=== PATIENT | male | born 1955 | race Caucasian/White ===

== ENCOUNTER → 2017-02-27 08:54 | Day surgery (SDC) | payer BC ==
[~2017-02-27 08:54] MED LIST: Clindamycin 900 MG IVPREMIX(* 900 MG/50 ML SDV IV ONE; Heparin 2 UNITS/ML IVPREMIX* 2,000 ML IV ONE; Heparin(*) 1000 UNIT/ML 10 ML VIAL CATH LAB IV ONE; Iohexol 350 (CONTRAST) 200 ML MDV IV ONE; LORazepam TAB(*) 1 MG ONE; LORazepam TAB(*) 1 MG PO ONE; LORazepam TAB(*) 1 MG PO PRN; Lidocaine 1% INJ* 10 MG/ML 30 ML SDV ONE; Midazolam* 1 MG/ML 10 ML VIAL (10 MG) ONE; NS 0.9% 1000 ML* 1,000 ML IV SCH; fentaNYL* 50 MCG/ML 2 ML VIAL (100 MCG VIAL) ONE
[2017-02-27 11:19] LABS: ABS Basophils 0.1 10^3/ul (0-0.2); ABS Eosinophils 0.3 10^3/ul (0-0.6); ABS Lymphocytes 2.2 10^3/ul (1.0-4.8); ABS Monocytes 0.6 10^3/ul (0-0.8); ABS Neutrophils 3.9 10^3/ul (1.5-7.7); ABS Nucleated RBC 0 10^3/ul; Eosinophil % 3.9 % (0-6); Hematocrit 43 % (42-52); Hemoglobin 14.8 g/dl (14.0-18.0); Lymphocyte % 31.3 % (25-47); Mean Corpuscular HGB Conc 35 g/dl (31-36); Mean Corpuscular Hemoglobin 32 pg (27-31); Mean Corpuscular Volume 93 fL (80-94); Mean Platelet Volume 10 um3 (7.4-10.4); Nucleated Red Blood Cells % 0.1; Platelet Count 201 10^3/ul (150-450); Red Blood Count 4.62 10^6/ul (4.0-5.4); Red Cell Distribution Width 13 % (10.5-15)
[2017-02-27 11:36] LABS: INR 0.98 (0.77-1.02)
--- NOTE | 2017-02-27 14:37 | PN ---
Progress Note - Progress Note Date of Service: 02/27/17 SOAP: Subjective: Resting comfortably. Denies pain either in the pelvis, groin or right leg. No nausea. 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 Percutaneous Minx closure device deployed successfully. Plan: 1. Standard post arteriography care status post percutaneous closure device with 2 hours bedrest. 2. Plavix 75 mg PO daily x 6 months. 3. Anticipate d/c to home today. 4. Routine Interventional Radiology clinical follow up and PHILLIP.
--- NOTE | 2017-02-27 22:01 | RAD ---
CPT II Codes: 6045F Procedure(s) performed: 1. Diagnostic right lower extremity arteriogram from ipsilateral right common femoral arterial access point. 2. Balloon angioplasty of the right superficial femoral artery. 3. Percutaneous Minx closure device to the right common femoral artery. Date of service: February 27, 2017 Indication for procedure: Right leg claudication in a patient with known peripheral arterial disease. Comparison: PHILLIP dated December 29, 2016 and CTA with runoff dated September 22, 2016 Contrast: 60 mL Omnipaque 300 Fluoroscopy Time: 9.6 minutes Vessels Accessed: Percutaneous access was obtained with ultrasound guidance in the right common femoral artery in the antegrade direction towards the right foot. Catheter arteriography, with the catheter tip located within the lumen of the following arteries, was performed at the right common femoral artery, right superficial femoral artery and right popliteal artery. Anesthesia: Conscious sedation with IV Fentanyl and Versed as well as local 1% lidocaine injected locally at the arteriotomy site. Conscious sedation time: Timeout: 1214 hours Case end: 1325 hours Total conscious sedation time: 1 hour and 11 minutes Additional medications: * IV heparin 5000 Units. * The patient received 1 mg of p.o. Ativan prior to the onset of the procedure. PROCEDURE NOTE AND INTRAPROCEDURAL IMAGING FINDINGS: Immediately prior to the procedure the patient signed consent after thoroughly discussing all risks, benefits and alternative therapies. The patient was positioned on the fluoroscopy table in the supine position and the bilateral groins and right ankle were shaved, prepped and the patient was draped in standard sterile fashion. Using fluoroscopic imaging the location of the right common femoral head was marked externally with a skin marker on the patient's groin. Utilizing sonographic guidance and palpation, the right common femoral artery was cannulated overlying the femoral head with a 21-gauge needle. An ultrasound image was saved. A microwire was slowly and smoothly advanced into the common femoral artery and into the right superficial femoral artery under fluoroscopic imaging. No buckling of the wire was visualized to indicate dissection. With the wire securing percutaneous arterial access, the needle was removed and a 5-Sol[place] Islander sheath was advanced over the wire until the tip was in the right common femoral artery. Arteriography was performed demonstrating appropriate placement of the sheath in the right common femoral artery. There is coarse calcification at the proximal most portion of the right superficial femoral artery. Contrast refluxed into the right external iliac artery distally and also filled the femoral profundus. A focus of high-grade stenosis in the proximal right superficial femoral artery was noted with evidence of collateralization from the more proximal superficial femoral artery and the femoral profundus. Arteriography was performed at the mid-level the more distal superficial femoral artery that demonstrated multiple foci of long segment stenosis at the mid-level superficial femoral artery as it courses through Dorian's canal. Further evidence of hypertrophied collateralization provided by the branches of the femoral profundus and more proximal branches off the SFA were readily apparent filling more distal right SFA and popliteal artery. A 0.035 inch hydrophilic wire was advanced under fluoroscopic control into the SFA. Over the wire the 5-[place] Islander sheath was exchanged for a 7-[place] Islander SideArm access sheath. Over the wire a 4-[place] Islander curved tip catheter was advanced and the combination of the catheter and wire were utilized to pass the stenoses in the right superficial femoral artery advancing the catheter to the distal popliteal artery. The wire was removed and arteriography was performed from this level demonstrating adequate patency of the distal popliteal artery, tibioperoneal trunk and proximal infrapopliteal arteries. The final preintervention diagnostic arteriogram was to image the distal infrapopliteal arteries and proximal pedal arteries. This demonstrated adequate in-line flow provided by the anterior tibial artery and posterior tibial arteries into the dorsalis pedis and plantar arteries, respectively. Adequate arterial flow was recorded as far as the right mid foot. The peroneal artery exhibits minimal filling beyond the distal third of the right lower leg. A 260 cm length 0.035 inch e[employer] Moneyson wire was advanced to the proximal right peroneal artery securing access across the diseased right superficial femoral artery. Over the wire balloon angioplasty was performed at multiple levels of the right superficial femoral artery utilizing a 5 mm x 100 mm Passeo-35 balloon. The balloon was ultimately inflated just below burst pressure yielding an approximate diameter of 5.5 mm. The balloon was inflated slowly under fluoroscopic control and was allowed to remain inflated for minimum of 2 to 3 minutes during each inflation. Arteriography from the right common femoral sheath through the popliteal artery showed improved flow with minor stenoses at the level of Dorian's canal. Over the wire a 5 mm x 120 mm paclitaxel coated InPact balloon was advanced to the long segment stenoses at the mid-level right superficial femoral artery and balloon angioplasty was performed. The artery was inflated just below burst pressure yielding an approximate diameter of 5.5 mm. The balloon remained inflated for at least 3 minutes to ensure adequate drug delivery to the endothelium. During inflation of the drug coated balloon in the right superficial femoral artery, contrast arteriography was performed through the side arm of the access sheath with the image intensifier in the left anterior oblique 20 degree position. This further demonstrated an appropriate puncture of the common femoral artery above the bifurcation and below the inferior epigastric artery. The sheath was drawn back until the tip was just barely in the lumen of the right common femoral artery to allow final balloon angioplasty across the proximal most portion of the right superficial femoral artery including the ostium and the distal most portion of the right common femoral artery. A final arteriogram performed with the tip of the sheath in the right common femoral artery demonstrated improved brisk flow throughout the length of the distal right common femoral artery into the superficial femoral artery and as far as the tibioperoneal trunk. No signs of extravasation or dissection are seen. After an appropriate resterilization of the arteriotomy and exchange for new sterile gloves, a Minx closure device was deployed at the common femoral arteriotomy and pressure held for approximately 15 minutes. There were no signs of bleeding at the percutaneous arterial access site and the site was dressed with sterile gauze and Tegaderm. The patient tolerated the procedure well and was transferred to angiography holding bay for standard post procedural observation. SUMMARY OF PROCEDURE, IMAGING FINDINGS AND INTERVENTIONS PERFORMED: 1. Diagnostic studies performed: * Arterial access was obtained at the right common femoral artery in the antegrade direction (i.e. towards the foot) with ultrasound guidance. A sonographic image was recorded. * Diagnostic catheter angiography (necessary to perform the appropriate interventions) was performed with the catheter tip in the right common femoral artery, right superficial femoral artery and right popliteal. * Catheter arteriography was performed of the right lower extremity from the distal right external iliac artery, through the femoral arteries, infrapopliteal arteries and as far as the mid foot pedal arteries. * Arteriography was performed through the side arm of the access sheath to image the distal right external iliac artery, right common femoral artery and proximal superficial femoral artery and femoral profundus. 2. Interpretation of diagnostic studies performed: * Multiple foci of high-grade stenosis at the distal right common femoral artery and superficial femoral artery as described in detail in the report. * Arteriography performed for the purpose of deploying a percutaneous arterial closure device demonstrates adequately patent right external iliac artery, common femoral artery and proximal superficial femoral artery and femoral profundus. 3. Surgical interventions performed: * Balloon angioplasty of the distal most right common femoral artery and right superficial femoral artery utilizing a 5 mm x 100 mm Biotronik balloon followed by a 5 mm x 120 mm paclitaxel coated InPact balloon. * Closure of the right common femoral artery was achieved with a Minx closure device followed by 15 minutes of gentle manual pressure. 4. Interpretation of interventions performed: * Final arteriography demonstrated widely patent brisk flow from the right common femoral artery through to the popliteal artery following angioplasty. Plan: 1. Aspirin 81 mg p.o. daily for life. 2. Plavix 75 mg p.o. daily x 6 months. 3. Clinical and imaging follow-up according to standard Interventional Radiology protocol.
== END | disposition home or self-care (01) ==
LOC: CHICATH 08:54
PROVIDERS: ATTEND Radiology Diagnostic Radiology
DX: I70.213 Atherosclerosis of native arteries of extremities with intermittent claudication, bilateral legs (principal); I73.9 Peripheral vascular disease, unspecified; Z87.891 Personal history of nicotine dependence; I10 Essential (primary) hypertension; E78.00 Pure hypercholesterolemia, unspecified; E78.5 Hyperlipidemia, unspecified; R07.9 Chest pain, unspecified
CPT/HCPCS: 36415; 76937; 85025; 85610; 85730; 99156; 99157; A9270-GY; C1725; C1760; C1769; C1887; C1894; J1644; J2250; J3010

== ENCOUNTER 2017-04-22 12:47 | Emergency (ER) | payer BC ==
--- OUTSIDE RECORDS SUMMARY | 2017-04-22 13:02 | XMS REPORT ---
:1955 External Reference #:[id number] Author Organization [employer] Address [address] [address] Phone [phone] Care Team Providers Name Role Phone Carrillo Luna MD Primary Care Physician Unavailable Payers Type Date Identification Numbers Payment Provider Subscriber Commercial Effective: Policy Number: BS Maria Del Rosario Price 2012 [id number] PayID: [id number] [address] [address] [place] [address] Medigap Part B Effective: 2000 Policy Number: BS Of JULIAN Price [id number] Expires: 2012 PayID: [id number] [address] [address] [place] [address] Problems Date Description Provider Status Onset: 05/25/2014 Spinal stenosis of lumbar region Meng Lorenz M.D. Active Onset: 05/25/2014 Weight decreased Meng Lorenz M.D. Active Onset: 05/31/2014 Atherosclerosis of arteries of the Meng Lorenz M.D. 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 Daily Caffeine Consumes on average 3 cups of regular coffee per day Exercise Type/Frequency Exercises regularly walking at home, and gym on treadmill daily Allergies, Adverse Reactions, Alerts Date Description Reaction Status Severity Comments 03/25/2017 Izzy depression active 11/09/2006 NKDA inactive Medications Medication Date Status Form Strength Qnty SIG Indications Ordering Provider Clopidogrel 10/29/ Active Tablets 75mg 180ta 75 mg by I70.213 Christophe Renteria Bisulfate 2017 bs mouth daily Daly, to start one M.D. week before endovascular surgery with Dr. Kauffman. Aspirin Adult / Active Tablets DR 81mg 1 PO qd Unknown 0000 Lipitor / Active Tablets 40mg one tab by Unknown 0000 mouth every night at bedtime Zestoretic / Active Tablets 10-12.5mg 1 by mouth Unknown 0000 every day Diazepam / Active Tablets 5mg Take One Unknown 0000 Tablet By Mouth Three Times A Day as Needed For Anxiety Maxim Viagra / Active Tablets 100mg Take 1 Tablet Unknown 0000 By Mouth as Needed 30 To 60 Minutes Before [place] (pt takes 1/2 tablet) Hydrocodone-A / Active Tablets 5-325mg 1 tab by Unknown cetaminophen 0000 mouth every 4- 6 hours as needed pain Probiotic / Active Capsules 1 by mouth Unknown 0000 every day Percocet 12/11/ Hx Tablets 5-325mg 45tab 1-2 tabs by Z96.642 Zaira 2014 mouth q8 as Mario, 01/25/ needed pain M.D. 2016 Percocet 09/01/ Hx Tablets 5-325mg 80tab 1-2 tabs by V54.81 Zaira 2014 mouth q8 as Mario, 11/09/ needed pain M.D. 2014 Percocet 07/31/ Hx Tablets 5-325mg 90tab take 1-2 715.15 Zaira 2014 pills every Mario, 09/01/ 4-6 hours as M.D. 2014 needed pain Coumadin 07/31/ Hx Tablets 2mg 60tab Take 1-3 tabs 715.15 Kurtis 2014 as directed Maria Ines 08/31/ M.D. 2014 Docusate 07/31/ Hx Capsules 100mg 60cap 1 by mouth 715.15 Kurtis Sodium 2014 - s twice a day Maria Ines, M.D. 2014 Ibuprofen 11/09/ Hx Tablets 200mg 2 PO tid prn Jun Hernandez 2007 - Pain Ayala, M.DGloria 2014 Zestoretic /00/ Hx Tablets 12.5 90tab 1 po qd Jun E. 0000 - s Ayala, M.DGloria 2014 Lipitor / Hx Tablets 20mg 90tab One Tab po Jun E. 0000 - s qhs Ayala, M.DGloria 2014 Hydrocodone-A / Hx Tablets 5-325mg 1 by mouth Unknown cetaminophen 0000 - every 4-6 11/09/ hours prn. 2014 Ibuprofen / Hx Capsules 200mg as needed Unknown 0000 - 2014 Cilostazol / Hx Tablets 100mg Take One Unknown 0000 - Tablet By 03/24/ Mouth Every 2017 Day Chantix / Hx Tablets 1mg Take One Unknown 0000 - Tablet By 10/28/ Mouth Twice A 2016 Day Omeprazole / Hx Capsules 40mg Take One Unknown 0000 - DR Capsule By 03/24/ Mouth Every 2017 Morning Vital Signs Date Vital Result Comment 03/25/2017 Height 66 inches 5'6" Weight 185.00 lb w/ o shoes Heart Rate 90 /min BP Systolic Sitting 142 mmHg lue reg cuff BP Diastolic Sitting 82 mmHg lue reg cuff Respiratory Rate 18 /min BMI (Body Mass Index) 29.9 kg/m2 10/29/2016 Height 66 inches 5'6" Weight 182.00 lb Heart Rate 70 /min BP Systolic Sitting 145 mmHg rue reg cuff BP Diastolic Sitting 54 mmHg rue reg cuff Respiratory Rate 20 /min BMI (Body Mass Index) 29.4 kg/m2 06/25/2016 Height 66 inches 5'6" Weight 185.00 lb Heart Rate 72 /min BP Systolic 141 mmHg BP Diastolic 79 mmHg Respiratory Rate 16 /min Body Temperature 97.2 F Pain Level 1 BMI (Body Mass Index) 29.9 kg/m2 01/17/2015 Height 66 inches 5'6" Weight 162.00 lb Pain Level 2 BMI (Body Mass Index) 26.1 kg/m2 12/11/2014 Height 66 inches 5'6" Weight 151.00 lb Heart Rate 104 /min BP Systolic 182 mmHg BP Diastolic 95 mmHg BMI (Body Mass Index) 24.4 kg/m2 10/02/2014 Height 66 inches 5'6" Weight 151.00 lb Pain Level 4 BMI (Body Mass Index) 24.4 kg/m2 09/01/2014 Height 66 inches 5'6" Weight 154.00 lb Heart Rate 82 /min BP Systolic 147 mmHg BP Diastolic 78 mmHg Pain Level 3 BMI (Body Mass Index) 24.9 kg/m2 08/14/2014 Height 66 inches 5'6" Weight 154.00 lb Heart Rate 109 /min BP Systolic 150 mmHg BP Diastolic 85 mmHg Respiratory Rate 18 /min Body Temperature 98.8 F Pain Level 5 BMI (Body Mass Index) 24.9 kg/m2 07/31/2014 Height 66 inches 5'6" Weight 154.00 lb Heart Rate 123 /min BP Systolic 169 mmHg BP Diastolic 95 mmHg BMI (Body Mass Index) 24.9 kg/m2 06/29/2014 Height 66 inches 5'6" Weight 154.00 lb Heart Rate 95 /min BP Systolic 209 mmHg BP Diastolic 115 mmHg Pain Level 7 BMI (Body Mass Index) 24.9 kg/m2 05/31/2014 Height 66 inches 5'6" Weight 154.00 lb Heart Rate 82 /min BP Systolic Sitting 140 mmHg BP Diastolic Sitting 80 mmHg Pain Level 8 back/l hip BMI (Body Mass Index) 24.9 kg/m2 05/25/2014 Height 66 inches 5'6" Weight 154.00 lb Heart Rate 88 /min BP Systolic Sitting 210 mmHg BP Diastolic Sitting 96 mmHg Pain Level 10 back BMI (Body Mass Index) 24.9 kg/m2 09/13/2008 Height 67 inches 5'7" Weight 177.00 lb Heart Rate 80 /min BP Systolic Sitting 128 mmHg BP Diastolic Sitting 80 mmHg BMI (Body Mass Index) 27.7 kg/m2 11/15/2007 Height 67 inches 5'7" Weight 177.00 lb Heart Rate 88 /min BP Systolic Sitting 146 mmHg BP Diastolic Sitting 86 mmHg BMI (Body Mass Index) 27.7 kg/m2 05/11/2007 Height 67 inches 5'7" Weight 178.00 lb Heart Rate 100 /min BP Systolic Sitting 136 mmHg BP Diastolic Sitting 88 mmHg BMI (Body Mass Index) 27.9 kg/m2 11/09/2006 Height 67 inches 5'7" Weight 174.00 lb Heart Rate 100 /min BP Systolic Sitting 144 mmHg BP Diastolic Sitting 90 mmHg BMI (Body Mass Index) 27.2 kg/m2 Results Test Date Test Result H/L Range Note Inr/Protime 02/27/2017 Inr 0.98 0.77-1.02 1 Laboratory test finding 02/27/2017 Partial Thrombo 30.6 seconds 26.0- 36.3 1, 2 Time PTT CBC Auto Diff 02/27/2017 White Blood Count 7.0 10^3/uL 3.5-10.8 1 Red Blood Count 4.62 10^6/uL 4.0-5.4 1 Hemoglobin 14.8 g/dL 14.0-18.0 1 Hematocrit 43 % 42-52 1 Mean Corpuscular Volume 93 fL 80-94 1 Mean Corpuscular Hemoglobin 32 pg High 27-31 1 Mean Corpuscular HGB Conc 35 g/dL 31-36 1 Red Cell Distribution Width 13 % 10.5-15 1 Platelet Count 201 10^3/uL 150-450 1 Mean Platelet Volume 10 um3 7.4-10.4 1 Abs Neutrophils 3.9 10^3/uL 1.5-7.7 1 Abs Lymphocytes 2.2 10^3/uL 1.0-4.8 1 Abs Monocytes 0.6 10^3/uL 0-0.8 1 Abs Eosinophils 0.3 10^3/uL 0-0.6 1 Abs Basophils 0.1 10^3/uL 0-0.2 1 Abs Nucleated RBC 0 10^3/uL 1 Granulocyte % 55.1 % 38-83 1 Lymphocyte % 31.3 % 25-47 1 Monocyte % 8.9 % 1-9 1 Eosinophil % 3.9 % 0-6 1 Basophil % 0.8 % 0-2 1 Nucleated Red Blood Cells % 0.1 1 Basic Metabolic Panel 11/21/2016 Sodium 133 mmol/L 133-145 Potassium 4.1 mmol/L 3.5-5.0 Chloride 100 mmol/L Low 101-111 Co2 Carbon Dioxide 26 mmol/L 22-32 Anion Gap 7 mmol/L 2-11 Glucose 109 mg/dL High 70-100 Blood Urea Nitrogen 13 mg/dL 6-24 Creatinine 1.06 mg/dL 0.67-1.17 BUN/Creatinine Ratio 12.3 8-20 Calcium 9.5 mg/dL 8.6-10.3 Egfr Non- 71.3 >60 Egfr 91.7 >60 3 Inr/Protime 11/21/2016 Inr 0.91 0.89-1.11 Laboratory test finding 11/21/2016 Partial Thrombo Time 30.6 seconds 26.0 -36.3 PTT CBC Auto Diff 11/21/2016 White Blood Count 6.0 10^3/uL 3.5-10.8 Red Blood Count 4.55 10^6/uL 4.0-5.4 Hemoglobin 14.5 g/dL 14.0-18.0 Hematocrit 42 % 42-52 Mean Corpuscular Volume 91 fL 80-94 Mean Corpuscular Hemoglobin 32 pg High 27-31 Mean Corpuscular HGB Conc 35 g/dL 31-36 Red Cell Distribution Width 13 % 10.5-15 Platelet Count 209 10^3/uL 150-450 Mean Platelet Volume 10 um3 7.4-10.4 Abs Neutrophils 2.8 10^3/uL 1.5-7.7 Abs Lymphocytes 2.3 10^3/uL 1.0-4.8 Abs Monocytes 0.6 10^3/uL 0-0.8 Abs Eosinophils 0.3 10^3/uL 0-0.6 Abs Basophils 0.1 10^3/uL 0-0.2 Abs Nucleated RBC 0.01 10^3/uL Granulocyte % 45.9 % 38-83 Lymphocyte % 38.6 % 25-47 Monocyte % 10.2 % High 1-9 Eosinophil % 4.4 % 0-6 Basophil % 0.9 % 0-2 Nucleated Red Blood Cells % 0.1 CBC No Diff 07/31/2014 White Blood Count 7.7 10^3/uL 4.8-10.8 4 Red Blood Count 4.23 10^6/uL 4.0-5.4 4 Hemoglobin 14.1 g/dL 14.0-18.0 4 Hematocrit 42 % 42-52 4 Mean Corpuscular Volume 98 fL High 80-94 4 Mean Corpuscular Hemoglobin 33 pg High 27-31 4 Mean Corpuscular HGB Conc 34 g/dL 31-36 4 Red Cell Distribution Width 13 % 10.5-15 4 Platelet Count 297 10^3/uL 150-450 4 Mean Platelet Volume 9 um3 7.4-10.4 4 Basic Metabolic Panel 07/31/2014 Sodium 134 mmol/L 133-145 4 Potassium 4.0 mmol/L 3.5-5.0 4 Chloride 99 mmol/L Low 101-111 4 Co2 Carbon Dioxide 28 mmol/L 22-32 4 Anion Gap 7 mmol/L 2-11 4 Glucose 92 mg/dL 70-100 4 Blood Urea Nitrogen 14 mg/dL 6-24 4 Creatinine 0.91 mg/dL 0.67-1.17 4 BUN/Creatinine Ratio 15.4 8-20 4 Calcium 10.3 mg/dL 8.6-10.3 4 Egfr Non- 85.6 >60 4 Egfr 110.1 >60 4, 5 Urinalysis Profile 07/31/2014 Urine Color Yellow 4 Urine Appearance Clear 4 Urine Specific Jackson 1.016 1.010-1.030 4 Urine pH 7.0 5-9 4 Urine Urobilinogen Negative Negative 4 Urine Ketones Negative Negative 4 Urine Protein Negative Negative 4 Urine Leukocytes Negative Negative 4 Urine Blood Negative Negative 4 Urine Nitrite Negative Negative 4 Urine Bilirubin Negative Negative 4 Urine Glucose Negative Negative 4 Type & Screen 07/31/2014 Patient Blood Type A Positive 4 Antibody Screen NEGATIVE 4 Laboratory test finding 05/31/2014 Blood Urea Nitrogen 12 mg/dL 6-24 Creatinine 05/31/2014 Creatinine 0.94 mg/dL 0.67-1.17 Egfr Non- 82.4 >60 Egfr 106.0 >60 6 Laboratory test finding 08/22/2008 TSH 1.09 MIU/ML 0.34-5.60 PSA Screening 1.19 NG/ML 0-4 7 Hemoglobin A1c 5.7 % <6.0 8 Lipid Profile (Trig/Chol/HDL) 08/22/2008 Triglyceride 76 mg/dL 40-200 Cholesterol 201 mg/dL High Less Than 200 9 High Density Lipoprotein 42 mg/dL 40-60 10 Cholesterol/HDL Ratio 4.79 AVERAGE 1-4.97 Low Density Lipoprotein 144 mg/dL High Less Than 100 11 Comp Metabolic Panel 08/22/2008 Sodium 138 mmol/L 135-145 Potassium 5.8 mmol/L High 3.5-5.0 Chloride 101 mmol/L 101-111 Co2 (Carbon Dioxide) 29.0 mmol/L 22-32 Anion Gap 8.0 mmol/L 2-11 12 Glucose 109 mg/dL High 70-100 13 BUN 13 mg/dL 6-24 Creatinine 1.10 mg/dL 0.50-1.40 One Over Creatinine 0.90 BUN/Creatinine Ratio 11.8 8-20 Calcium 10.4 mg/dL High 8.1-9.9 14 Total Protein 7.2 GM/DL 6.2-8.1 Albumin 4.8 GM/DL 3.6-5.4 Globulin 2.4 GM/DL 2-4 Albumin/Globulin Ratio 2.0 1-3 Bilirubin Total 0.8 mg/dL 0.4-1.5 15 Alkaline Phosphatase 78 U/L 39-117 Alt (SGPT) 31 U/L 17-63 Ast (Sgot) 32 U/L 12-42 eGFR Non- 74.7 > 60 eGFR 90.4 > 60 16 CBC With Electronic Diff 08/22/2008 White Blood Count 10.9 CUMM High 4.8- 10.8 Red Cell Count 5.13 CUMM 4.6-6.2 Hemoglobin 16.8 g/dL 14.0-18.0 Hematocrit 49 % 42-52 Mean Corpuscular Volume 95 um3 High 80-94 Mean Corpuscular Hemoglob 33 pg High 27-31 Mean Corpuscular HGB Cone 35 g/dL 32-36 Redcell Distribution WDTH 12 % 10.5-15 Platelet Count 207 CUMM 150-450 Mean Platelet Volume 10.1 um3 7.4-10.4 Gran % 70.9 % 38-83 Lymph % 21.2 % Low 25-47 Mononuclear % 6.4 % 1-9 Eosinophil % 1.4 % 0-6 Basophil % 0.1 % 0-2 Abs Lymphs 2.3 1.0-4.8 Abs Mononuclear 0.7 0-0.8 Absolute Neutrophil Count 7.7 1.5-7.7 Abs Eosinophils 0.2 0-0.6 Abs Basophils 0 0-0.2 Laboratory test finding 11/18/2006 PSA Screening 1.47 NG/ML 0-4 17 TSH 1.07 MIU/ML 0.34-5.60 Hemoglobin A1c 5.4 % <6.0 18 Lipid Profile 11/18/2006 Cholesterol/HDL Ratio 4.76 AVERAGE 1-4.97 (Trig/Chol/HDL) Cholesterol 195 mg/dL Less Than 200 19 Triglyceride 70 mg/dL 40-200 High Density Lipoprotein 41 mg/dL 40-60 Low Density Lipoprotein 140 mg/dL High Less Than 100 20 Comp Metabolic Panel 11/18/2006 One Over Creatinine 0.83 Anion Gap 6.0 mmol/L 2-11 21 Albumin/Globulin Ratio 2.1 1-3 Albumin 4.6 GM/DL 3.6-5.4 Alkaline Phosphatase 69 U/L 39-117 Alt (SGPT) 25 U/L 17-63 Ast (Sgot) 34 U/L 12-42 BUN 6 mg/dL 6-24 Calcium 9.9 mg/dL 8.7-10.2 Chloride 101 mmol/L 101-111 Co2 (Carbon Dioxide) 33.0 mmol/L High 22-32 Globulin 2.2 GM/DL 2-4 Glucose 108 mg/dL High 70-105 Potassium 5.7 mmol/L High 3.5-5.0 Sodium 140 mmol/L 135-145 Bilirubin Total 0.6 mg/dL 0.4-1.5 Total Protein 6.8 GM/DL 6.2-8.1 BUN/Creatinine Ratio 5.0 Low 8-20 Creatinine 1.2 mg/dL 0.5-1.4 CBC W/ Electronic Diff 11/18/2006 White Blood Count 10.5 CUMM 4.8-10.8 Abs Basophils 0 0-0.2 Abs Eosinophils 0.1 0-0.6 Absolute Neutrophil Count 7.9 High 1.5-7.7 Abs Lymphs 1.7 1.0-4.8 Abs Mononuclear 0.7 0-0.8 Basophil % 0.3 % 0-2 Hematocrit 48 % 42-52 22 Hemoglobin 15.9 g/dL 14.0-18.0 Eosinophil % 1.3 % 0-6 Gran % 75.2 % 38-83 Lymph % 16.4 % Low 20-45 Mean Corpuscular HGB Cone 33 g/dL 32-36 Mean Corpuscular Hemoglob 32 pg High 27-31 Mean Corpuscular Volume 96 um3 High 80-94 Mean Platelet Volume 10.1 um3 7.4-10.4 Mononuclear % 6.8 % 1-9 Platelet Count 274 CUMM 150-450 Red Cell Count 5.02 CUMM 4.6-6.2 Redcell Distribution WDTH 12 % 10.5-15 1 CALL RESULTS 4591 2 CALL RESULTS 4591 3 Because ethnic data is not always readily available, this report includes an eGFR for both -Americans and non- Americans. The National Kidney Disease Education Program (NKDEP) does not endorse the use of the MDRD equation for patients that are not between the ages of 18 and 70, are , have extremes of body size, muscle mass, or nutritional status, or are non- or non-. According to the National Kidney Foundation, irrespective of diagnosis, the stage of the disease is based on the level of kidney function: Stage Description GFR(mL/min/1.73 m(2)) 1 Kidney damage with normal or decreased GFR 90 2 Kidney damage with mild decrease in GFR 60-89 3 Moderate decrease in GFR 30-59 4 Severe decrease in GFR 15-29 5 Kidney failure <15 (or dialysis) 4 AA 08/08 5 Because ethnic data is not always readily available, this report includes an eGFR for both -Americans and non- Americans. The National Kidney Disease Education Program (NKDEP) does not endorse the use of the MDRD equation for patients that are not between the ages of 18 and 70, are , have extremes of body size, muscle mass, or nutritional status, or are non- or non-. According to the National Kidney Foundation, irrespective of diagnosis, the stage of the disease is based on the level of kidney function: Stage Description GFR(mL/min/1.73 m(2)) 1 Kidney damage with normal or decreased GFR 90 2 Kidney damage with mild decrease in GFR 60-89 3 Moderate decrease in GFR 30-59 4 Severe decrease in GFR 15-29 5 Kidney failure <15 (or dialysis) 6 Because ethnic data is not always readily available, this report includes an eGFR for both -Americans and non- Americans. The National Kidney Disease Education Program (NKDEP) does not endorse the use of the MDRD equation for patients that are not between the ages of 18 and 70, are , have extremes of body size, muscle mass, or nutritional status, or are non- or non-. According to the National Kidney Foundation, irrespective of diagnosis, the stage of the disease is based on the level of kidney function: Stage Description GFR(mL/min/1.73 m(2)) 1 Kidney damage with normal or decreased GFR 90 2 Kidney damage with mild decrease in GFR 60-89 3 Moderate decrease in GFR 30-59 4 Severe decrease in GFR 15-29 5 Kidney failure <15 (or dialysis) 7 * SERUM LEVELS OF PSA MEASURED USING THE [employer] ACCESS HYBRITECH IMMUNOASSAY SHOULD NOT BE INTERPRETED ABSOLUTE EVIDENCE OF THE PRESENCE OR ABSENCE OF DISEASE. THE PSA VALUE SHOULD BE USED IN CONJUNCTION WITH OTHER PERTINENT CLINICAL DIAGNOSTIC PROCEDURES. 8 THERAPEUTIC TARGET FOR THE TREATMENT OF DIABETES MELLITUS PATIENTS IS <7% HBA1C, AND IN SELECTIVE PATIENTS <6.0%. PLEASE REFER TO [place] [employer]ATION DIABETIC CARE GUIDELINES FOR FURTHER INFORMATION. 9 CHOLESTEROL INTERPRETATION: Desirable: Less than 200 MG/DL Borderline-High Risk: 200-239 MG/DL High-Risk: 240 MG/DL and over 10 HDL INTERPRETATION: Undesirable: High Risk: Less than 40 MG/DL Desirable: Low Risk: Greater than 60 MG/DL 11 LDL INTERPRETATION: Low Risk Optimal Level: LDL Less than 100 MG/DL Near or Above Optimal: LDL 100-129 MG/DL Borderline High Risk: LDL 130-159 MG/DL High Risk: LDL 160-189 MG/DL Very High Risk: LDL Greater than 189 MG/DL 12 Anion gap measurement may be of limited value in the presence of any alkalosis, especially in a combined acid base disorder. . 13 Note change in reference range as of 09/30/07. The change was based on recommendations from the [place] [employer]. 14 Please note change in reference range effective 07 . 15 A metabolite of Naproxen, O-desmethylnaproxen, has been shown to interfere with the Jendrassik-[place] method for measuring total bilirubin. Samples from patients who have taken Naproxen have shown spurious elevation in total bilirubin levels. 16 Because ethnic data is not always readily available, this report includes an eGFR for both -Americans and non- Americans. The National Kidney Disease Education Program (NKDEP) does not endorse the use of the MDRD equation for patients that are not between the ages of 18 and 70, are , have extremes of body size, muscle mass, or nutritional status, or are non- or non-. According to the National Kidney Foundation, irrespective of diagnosis, the stage of the disease is based on the level of kidney function: Stage Description GFR(mL/min/1.73 m(2)) 1 Kidney damage with normal or decreased GFR 90 2 Kidney damage with mild decrease in GFR 60-89 3 Moderate decrease in GFR 30-59 4 Severe decrease in GFR 15-29 5 Kidney failure <15 (or dialysis) 17 * SERUM LEVELS OF PSA MEASURED USING THE [employer] ACCESS HYBRITECH IMMUNOASSAY SHOULD NOT BE INTERPRETED ABSOLUTE EVIDENCE OF THE PRESENCE OR ABSENCE OF DISEASE. THE PSA VALUE SHOULD BE USED IN CONJUNCTION WITH OTHER PERTINENT CLINICAL DIAGNOSTIC PROCEDURES. 18 THERAPEUTIC TARGET FOR THE TREATMENT OF DIABETES MELLITUS PATIENTS IS <7% HBA1C, AND IN SELECTIVE PATIENTS <6.0%. PLEASE REFER TO [place] [employer] DIABETIC CARE GUIDELINES FOR FURTHER INFORMATION. 19 Classification: Desirable . 20 CALCULATED LDL APPROXIMATES THE VALUE OF A DIRECT LDL MEASUREMENT. Classification: Borderline High . 21 Anion gap measurement may be of limited value in the presence of any alkalosis, especially in a combined acid base disorder. . 22 Lymphopenia % Procedures Date CPT Code Description Status 02/27/2017 52729 Moderate Sedation Services; Same Phys Each Additional Completed 15 Mins 02/27/2017 42271 Moderate Sedation Services; Same Phys Intl 15 Mins; PT Completed >=5 Years 02/27/2017 97292 Ultrasound Guidance For Vascular Access Completed 02/27/2017 11626 Ogkrb-Pgyjqxkoa-Ovrpmoqtcs Completed 02/27/2017 73574 Revascularization,Endovascular,Transluminal Angioplasty Completed 11/21/2016 16420 Moderate Sedation Services; Same Phys Each Additional Completed 15 Mins 11/21/2016 58404 Moderate Sedation Services; Same Phys Intl 15 Mins; PT Completed >=5 Years 11/21/2016 31472 Ultrasound Guidance For Vascular Access Completed 11/21/2016 61764 Angio Extremity, Bilateral Completed 11/21/2016 56206 Revascularization,Endovascular W/Atherectomy, Inc Completed Angioplasty 08/08/2014 07991 THR Total Hip Replacement Completed 08/08/2014 42852 THR Total Hip Replacement Completed 05/31/2014 Bone Mineral Density Test Completed Encounters Type Date Location Provider CPT E/M Dx Office Visit 11/24/2016 [facility] Christophe Kauffman, 52073 I70.213 11:53a Of Elaina Boudreaux Office Visit 10/29/2016 [facility] Christophe Kauffman, 58541 I70.213 10:30a Of Elaina Boudreaux Office Visit 06/25/2016 [facility] Zaira Martin M.D. 77323 Z47.1 9:15a Of C.M.AGloria Z96.642 M25.552 Office Visit 01/17/2015 9:15a [facility] Of Zaira Martin M.D. 76110 Z47.1 C.M.A. Z96.642 Office Visit 12/11/2014 11:15a [facility] Of Zaira Martin M.D. 82814 Z96.642 C.M.A. M25.552 M76.12 Z47.1 Office Visit 06/29/2014 10:00a [facility] Of Zaira Martin, 13764 715.15 C.MShabana Boudreaux Office Visit 05/31/2014 3:00p [facility] Of Meng Lorenz 69030 724.02 [facility] Janusz 440.21 Office Visit 05/25/2014 1:00p [facility] Meng Lorenz, 74138 724.02 Of Elaina Boudreaux 783.21 Office Visit 09/13/2008 11:30a [facility], 55408 401.1 [facility]D. Office Visit 11/15/2007 11:00a [facility] [address]00 [facility] 05/11/2007 11:30a [facility], 81201 [facility] Visit 11/09/2006 11:30a [facility], 72580 272.0 [facility] 401.1 724.2 Plan of Care 03/25/2017 - Christophe Kauffman M.D.I70.213 Athscl minto arteries of extrm w intrmt mendez, bi legsComments:The following was discussed with Emeka at the time of follow-up clinic visit:Overall the patient appears to exhibit significant clinical improvement status post angioplasty of the bilateral superficial femoral arteries. 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 Transcatheter pressure measurements acquired above and below the stenoses did show a gradient but the gradient did not meet the 10 mmHg threshold to warrant stent placement in the iliac arteries. Perhaps the aortoiliac narrowing is contributing to the reduced ABIs and potentially to the patient's persistent left calf pain.Alternatively the left calf pain could be musculoskeletal as the patient appears to a rigorous daily workout regimen.Either way, the patient is satisfied clinically and therefore currently there is no indication for further intervention.Follow up:According to the patient's request there will be no clinic follow-up 3 and 6 months post intervention. The patient was encouraged to contact interventional radiology if he experiences any change in symptoms or other issues.
[2017-04-22] MEDS ORDERED: LORazepam INJ* 2 MG/ML 1 ML VIAL ONE (13:09)
[2017-04-22] MEDS ORDERED: fentaNYL* 50 MCG/ML 2 ML VIAL (100 MCG VIAL) ONE (13:11)
[2017-04-22] MEDS ORDERED: Lidocaine 1% INJ* 10 MG/ML 30 ML SDV ONE (13:19)
[2017-04-22] MEDS ORDERED: NS 0.9% 1000 ML* 2,000 ML IV ONE (14:27)
[2017-04-22] MEDS ORDERED: Tetan/Diph/Pertus SYR(Tdap)* 0.5 ML SYR(BOOSTRIX) use SYR IM ONE (14:28)
--- NOTE | 2017-04-22 15:27 | RAD ---
INDICATION: Head injury. COMPARISON: There are no prior studies available for comparison. TECHNIQUE: Contiguous axial sections of the brain were obtained from the skull base to the vertex without contrast. FINDINGS: The ventricles, cisterns and sulci are enlarged consistent with age-related atrophy. No significant focal abnormality or mass effect is seen. There is no evidence for hemorrhage. There is soft tissue swelling and hematoma anterior to the right frontal bone. No fracture is seen. There is mildly coiled thickening within the visualized portion of the right maxillary sinus. The visualized portion of the paranasal sinuses and mastoid air cells otherwise appear clear. IMPRESSION: 1. NO EVIDENCE FOR ACUTE INTRACRANIAL ABNORMALITY. 2. SOFT TISSUE SWELLING AND HEMATOMA ANTERIOR TO THE RIGHT FRONTAL BONE.
--- NOTE | 2017-04-22 15:35 | RAD ---
INDICATION: Facial laceration after fall COMPARISON: None TECHNIQUE: Noncontrast axial source images was performed from the skull base to the thoracic inlet. Coronal and and sagittal reformatted images were generated. FINDINGS: Vertebrae: There is no fracture or acute focal bony lesion. Alignment: The craniocervical junction appears normal. The cervical vertebrae are normally aligned. Central Canal: There are no significant CT abnormalities of the central canal or foramina. MR imaging is a more sensitive method to evaluate the canal and foramina. Intervertebral disc spaces: There is minor disc space narrowing at C6-C7 and C7-T1. Brain: The visualized brain appears unremarkable. Soft tissues: The visualized soft tissue elements of the neck are unremarkable. The prevertebral soft tissues appear normal. The lung apices are clear. IMPRESSION: MINOR LOWER CERVICAL DISC SPACE NARROWING. NO ACUTE FINDINGS.
[2017-04-22] MEDS ORDERED: LORazepam INJ* 2 MG/ML 1 ML VIAL IV PUSH ONE (15:36)
--- NOTE | 2017-04-22 15:36 | RAD ---
INDICATION: Facial trauma. COMPARISON: There are no prior studies available for comparison. TECHNIQUE: Contiguous axial sections of the axial images of the facial bones were obtained and reconstructed in the coronal and sagittal planes. FINDINGS: There is soft tissue swelling and hematoma anterior to the right frontal bone, orbit and maxilla. There is a small amount of air present consistent with a laceration type injury. The delgado of the orbits appear intact. There is a transverse nondisplaced fracture through the posterior lateral lateral wall of the right maxillary sinus. The zygomatic arches appear intact. There is no evidence for a fracture of the mandible. The nasal bones appear intact. There is moderate to severe deviation of the nasal septum toward the right side. The pterygoid plates appear intact. There is mucosal thickening and increased density in the inferior portion of the right maxillary sinus and there is minimal mucosal thickening within the left maxillary sinus and ethmoid air cells. The frontal and sphenoid sinuses appear clear. The mastoid air cells appear clear. IMPRESSION: 1. NONDISPLACED FRACTURE OF THE POSTEROLATERAL WALL OF THE RIGHT MAXILLARY SINUS. 2. SOFT TISSUE SWELLING AND HEMATOMA ANTERIOR TO THE RIGHT FRONTAL BONE, ORBIT AND MAXILLA.
[2017-04-22] MEDS ORDERED: fentaNYL* 50 MCG/ML 2 ML VIAL (100 MCG VIAL) IV SLOW PU ONE (15:37)
[2017-04-22 15:38] LABS: ABS Basophils 0 10^3/ul (0-0.2); ABS Eosinophils 0.1 10^3/ul (0-0.6); ABS Lymphocytes 1.3 10^3/ul (1.0-4.8); ABS Monocytes 0.6 10^3/ul (0-0.8); ABS Neutrophils 9.7 10^3/ul (1.5-7.7); ABS Nucleated RBC 0 10^3/ul; Eosinophil % 0.8 % (0-6); Hematocrit 38 % (42-52); Hemoglobin 13.1 g/dl (14.0-18.0); Mean Corpuscular HGB Conc 34 g/dl (31-36); Mean Corpuscular Hemoglobin 32 pg (27-31); Mean Corpuscular Volume 93 fL (80-94); Mean Platelet Volume 9 um3 (7.4-10.4); Nucleated Red Blood Cells % 0; Platelet Count 230 10^3/ul (150-450); Red Blood Count 4.12 10^6/ul (4.0-5.4); Red Cell Distribution Width 13 % (10.5-15); White Blood Count 11.8 10^3/ul (3.5-10.8)
[2017-04-22 15:50] LABS: INR 1.06 (0.77-1.02)
[2017-04-22 15:55] LABS: EGFR Non-African American 62.8 (>60)
[2017-04-22 16:41] VITALS: BP 151/87
--- NOTE | 2017-04-22 22:51 | ED ---
Jamal Laird Gabriel, scribed for Augustine Carlton MD on 04/22/17 at 1311 . Adult Trauma - HPI Summary HPI Summary: This patient is a 62 year old M [place] [facility] [place] 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 He has a large arterial laceration on his forearm that projects blood when unwrapped. The patient is on blood thinners and took one hydrocodone earlier today for chronic back pain. The patient rates the pain 6/10 in severity. There was no LOC - History of Current Complaint Chief Complaint: EDLacSutureRecheck Stated Complaint: FALL, HEAD LAC Hx Obtained From: Patient Mechanism of Injury: Blunt Trauma Ambulatory at the Scene: Yes Loss of Consciousness: no loss of consciousness Onset/Duration: Still Present Onset Severity: Moderate Current Severity: Moderate Pain Intensity: 6 Pain Scale Used: 0-10 Numeric Location: Head - Allergy/Home Medications Allergies/Adverse Reactions: Allergies Allergy/AdvReac Type Severity Reaction Status Date / Time No Known Allergies Allergy Verified 08/29/15 08:22 PMH/Surg Hx/FS Hx/Imm Hx Endocrine/Hematology History: Denies: Hx Diabetes, Hx Systemic Lupus Erythematosus Cardiovascular History: Reports: Hx Hypercholesterolemia, Hx Hypertension - ON DAILY MEDS Denies: Hx Congestive Heart Failure, Hx Pacemaker/ICD History: Denies: Hx Dialysis, Hx Renal Disease Musculoskeletal History: Reports: Hx Arthritis - BACK, HIPS, Hx Back Problems Denies: Hx Rheumatoid Arthritis Sensory History: Reports: Hx Contacts or Glasses - GLASSES Denies: Hx Hearing Aid Opthamlomology History: Reports: Hx Contacts or Glasses - GLASSES Neurological History: Reports: Other Neuro Impairments/Disorders - PAIN CLINIC PT Psychiatric History: Denies: Hx Panic Disorder - Cancer History Cancer Type, Location and Year: basal cell Hx Chemotherapy: No - Surgical History Surgery Procedure, Year, and Place: 2013 Basal cell removal on scalp IN DR OFFICE. 1982, 1983, 1984 Broken arm left forearm x 3 [facility]. 08/08/2014 [place] [facility] [place] Anesthesia Reactions: No Infectious Disease History: No Infectious Disease History: Denies: Traveled Outside the [place] in Last 30 Days - Social History Alcohol Use: Weekly Alcohol Amount: 6-12 PACK/WEEK Substance Use Type: Reports: None Smoking Status (MU): Former Smoker Type: Cigarettes Amount Used/How Often: 1 ppd 45 YRS Have You Smoked in the Last Year: Yes Review of Systems Positive: Other - laceration to forehead Neurological: Negative - LOC Negative: Slurred Speech All Other Systems Reviewed And Are Negative: Yes Physical Exam - Summary Physical Exam Summary: General: well-appearing, no pain distress Skin: a laceration by the right orthodoxy 9cm in size. Laceration in the corner of the right eye 2cm in size Head: normal Eyes: EOMI, PEPE ENT: normal Neck: supple, nontender Respiratory: CTA, breath sounds present Cardiovascular: RRR Abdomen: soft, nontender Bowel: present Musculoskeletal: normal, strength/ROM intact Neurological: normal, sensory/motor intact, A&O x3 Psychological: affect/mood appropriate Triage Information Reviewed: Yes Vital Signs On Initial Exam: Initial Vitals Temp Pulse Resp BP Pulse Ox 99.4 F 103 18 150/90 100 04/22/17 12:59 04/22/17 12:59 04/22/17 12:59 04/22/17 12:59 04/22/17 12:59 Vital Signs Reviewed: Yes Procedures - Laceration/Wound Repair 1 Location: head - right orthodoxy Description: Irregular Anesthesia: 1.0% Length, Depth and Shape: 9 cm subcutaneous Betadine Prep?: No Irrigated w/ Saline (ccs): 30 Laceration/Wound Explored: clean, no foreign body removed Suture Type: Nylon - 4, Prolene - 11 Number of Sutures: 19 Layer Closure?: Yes - 4 5-O chromic 2 Location: face - right of the eye Description: Irregular Anesthesia: 1.0% Length, Depth and Shape: 2cm subcuntaneous Irrigated w/ Saline (ccs): 10 Laceration/Wound Explored: clean, no foreign body removed Suture Type: Nylon Number of Sutures: 5 Diagnostics - Vital Signs Vital Signs Temp Pulse Resp BP Pulse Ox 04/22/17 12:59 99.4 F 103 18 150/90 100 - Laboratory Lab Results: Lab Results 04/22/17 04/22/17 04/22/17 Range/Units 15:19 15:19 15:19 WBC 11.8 H (3.5-10.8) 10^3/ul RBC 4.12 (4.0-5.4) 10^6/ul Hgb 13.1 L (14.0-18.0) g/dl Hct 38 L (42-52) % MCV 93 (80-94) fL MCH 32 H (27-31) pg MCHC 34 (31-36) g/dl RDW 13 (10.5-15) % Plt Count 230 (150-450) 10^3/ul MPV 9 (7.4-10.4) um3 Neut % (Auto) 82.4 (38-83) % Lymph % (Auto) 11.0 L (25-47) % [place] % (Auto) 5.5 (0-7) % Eos % (Auto) 0.8 (0-6) % Baso % (Auto) 0.3 (0-2) % Absolute Neuts (auto) 9.7 H (1.5-7.7) 10^3/ul Absolute Lymphs (auto) 1.3 (1.0-4.8) 10^3/ul Absolute Monos (auto) 0.6 (0-0.8) 10^3/ul Absolute Eos (auto) 0.1 (0-0.6) 10^3/ul Absolute Basos (auto) 0 (0-0.2) 10^3/ul Absolute Nucleated RBC 0 10^3/ul Nucleated RBC % 0 INR (Anticoag Therapy) 1.06 H (0.77-1.02) APTT 29.3 (26.0-36.3) seconds Sodium 136 (133-145) mmol/L Potassium 3.9 (3.5-5.0) mmol/L Chloride 103 (101-111) mmol/L Carbon Dioxide 25 (22-32) mmol/L Anion Gap 8 (2-11) mmol/L BUN 19 (6-24) mg/dL Creatinine 1.18 H (0.67-1.17) mg/dL Est GFR ( Amer) 80.7 (>60) Est GFR (Non-Af Amer) 62.8 (>60) BUN/Creatinine Ratio 16.1 (8-20) Glucose 96 (70-100) mg/dL Calcium 9.1 (8.6-10.3) mg/dL Total Bilirubin 0.80 (0.2-1.0) mg/dL AST 20 (13-39) U/L ALT 21 (7-52) U/L Alkaline Phosphatase 51 (34-104) U/L Total Protein 6.6 (6.4-8.9) g/dL Albumin 4.2 (3.2-5.2) g/dL Globulin 2.4 (2-4) g/dL Albumin/Globulin Ratio 1.8 (1-3) Result Diagrams: 04/22/17 15:19 04/22/17 15:19 Lab Statement: Any lab studies that have been ordered have been reviewed, and results considered in the medical decision making process. - CT CT brain CT Interpretation Completed By: Radiologist - 1. NO EVIDENCE FOR ACUTE INTRACRANIAL ABNORMALITY. 2. SOFT TISSUE SWELLING AND HEMATOMA ANTERIOR TO THE RIGHT FRONTAL BONE. ED physician has reviewed this radiology report. CT maxillofacial CT Interpretation Completed By: Radiologist - 1. NONDISPLACED FRACTURE OF THE POSTEROLATERAL WALL OF THE RIGHT MAXILLARY SINUS. 2. SOFT TISSUE SWELLING AND HEMATOMA ANTERIOR TO THE RIGHT FRONTAL BONE, ORBIT AND MAXILLA. ED physician has reviewed this radiology report. CT C-spine CT Interpretation Completed By: Radiologist - MINOR LOWER CERVICAL DISC SPACE NARROWING. NO ACUTE FINDINGS. ED physician has reviewed this radiology report. Adult Trauma Course/Dx - Course Course Of Treatment: F/U ENT FOR MAXILLARY SINUS FRACTURE. RETURN TO ED IF WORSE. - Diagnoses Provider Diagnoses: Head injury, Facial laceration, Maxillary sinus fracture, Scalp laceration - Physician Notifications Discussed Care Of Patient With: Elver Pearl Time Discussed With Above Provider: 13:00 Instructed by Provider To: Other - Dr. Pearl came to the ED and evaluated the wound. Discharge - Discharge Plan Condition: Stable Disposition: HOME Prescriptions: Amoxicillin PO (*) [Amoxicillin 875 MG (*)] 875 mg PO BID #14 tab Patient Education Materials: Care For Your Stitches (ED), Laceration (ED), Facial Fracture (ED), Head Injury (ED), Facial Laceration (ED) Referrals: Carrillo Luna MD [Primary Care Provider] - Additional Instructions: FOLLOW UP WITH ENT OR PLASTICS FOR YOU MAXILLARY SINUS FRACTURE AND FACIAL LACERATION. RETURN TO THE EMERGENCY DEPARTMENT FOR ANY WORSENING OF YOUR CONDITION; PAIN, WEAKNESS, NUMBNESS, CHANGE IN VISION OR SPEECH, SIGNS OF INFECTION OR QUESTIONS OR CONCERNS. YOUR BLOOD PRESSURE WAS ELEVATED TODAY; FOLLOW UP WITH YOUR PRIMARY CARE DOCTOR WITHIN ONE WEEK. The documentation as recorded by the Jamal barbosa Gabriel accurately reflects the service I personally performed and the decisions made by me, Augustine Carlton MD.
== END 2017-04-22 16:40 | disposition home or self-care (01) ==
LOC: ED 12:47
DX: S01.81XA Laceration without foreign body of other part of head, initial encounter (principal); S09.90XA Unspecified injury of head, initial encounter; S02.401A Maxillary fracture, unspecified side, initial encounter for closed fracture; S01.01XA Laceration without foreign body of scalp, initial encounter; W18.00XA Striking against unspecified object with subsequent fall, initial encounter; Y92.89 Other specified places as the place of occurrence of the external cause; Z87.891 Personal history of nicotine dependence
CPT/HCPCS: 36415; 70450; 70486; 72125; 80053; 85025; 85610; 85730; 90715; 99283; J2060; J3010

== ENCOUNTER 2018-07-06 12:23 | Day surgery (SDC) | payer SELFPAY ==
[~2018-07-06 12:23] MED LIST changes: +Buffered Lidocaine 1% SYRIN* 1 ML/SYRINGE INTRADERM ONE; -Clindamycin 900 MG IVPREMIX(* 900 MG/50 ML SDV IV ONE; -Heparin 2 UNITS/ML IVPREMIX* 2,000 ML IV ONE; -Heparin(*) 1000 UNIT/ML 10 ML VIAL CATH LAB IV ONE; -Iohexol 350 (CONTRAST) 200 ML MDV IV ONE; -LORazepam TAB(*) 1 MG ONE; -LORazepam TAB(*) 1 MG PO ONE; -LORazepam TAB(*) 1 MG PO PRN; +Lactated Ringers 1000 ML Bag* 1,000 ML IV SCH; -Lidocaine 1% INJ* 10 MG/ML 30 ML SDV ONE; -Midazolam* 1 MG/ML 10 ML VIAL (10 MG) ONE; -NS 0.9% 1000 ML* 1,000 ML IV SCH; +ceFAZolin 2 GM PREMIX in ORs 2 GM/50 ML BAG IVPB ONE; -fentaNYL* 50 MCG/ML 2 ML VIAL (100 MCG VIAL) ONE
[2018-07-06] MEDS ORDERED: fentaNYL* 50 MCG/ML 2 ML VIAL (100 MCG VIAL) ONE (14:24)
[2018-07-06] MEDS ORDERED: Midazolam* 1 MG/ML 5 ML VIAL (5 MG) ONE (14:24)
[2018-07-06] MEDS ORDERED: Lidocain 1% EPI 1:100,000 * 30 ML MDV ONE (14:30)
[2018-07-06] MEDS ORDERED: Lidocaine 2% PF * 5 ML VIAL ONE (14:46)
[2018-07-06] MEDS ORDERED: Propofol* 10 MG/ML 20 ML BTL ONE (14:46)
[2018-07-06] MEDS ORDERED: Midazolam* 1 MG/ML 2 ML VIAL (2 MG) ONE (15:00)
[2018-07-06] MEDS ORDERED: Naloxone* 0.4 MG/ML 1 ML VIAL IV PRN (15:35)
[2018-07-06 16:48] VITALS: BP 119/63
== END 2018-07-06 16:53 | disposition home or self-care (01) ==
LOC: OR 12:23
PROVIDERS: ATTEND Plastic Surgery
DX: L90.5 Scar conditions and fibrosis of skin (principal); I10 Essential (primary) hypertension; Z87.891 Personal history of nicotine dependence; E78.00 Pure hypercholesterolemia, unspecified; M54.5 Low back pain; F11.90 Opioid use, unspecified, uncomplicated; Z85.828 Personal history of other malignant neoplasm of skin; Z85.21 Personal history of malignant neoplasm of larynx
CPT/HCPCS: J0690; J2250; J2704; J3010

== ENCOUNTER 2019-04-25 10:41 | Emergency (ER) | payer MEDICARE, BC ==
--- NOTE | 2019-04-25 10:55 | ED ---
GI/ HPI - HPI Summary HPI Summary: 64 year old M presenting to [facility] with a chief complaint of diarrhea and lower abdominal pain that he describes as a burning sensation since 2 weeks ago. The patient rates the pain 0/10 in severity. Symptoms aggravated by nothing. Symptoms alleviated by nothing. The patient reports weight loss. He has been taking Tums for his symptoms. He takes hydrocodone for chronic lower back pain. Medication list reviewed. Allergy list reviewed. - History of Current Complaint Chief Complaint: EDNauseaVomitDiarrh Time Seen by Provider: 04/25/19 10:49 Stated Complaint: UMBILICAL HERNIA PER PT Hx Obtained From: Patient Timing: Constant Current Severity: None Pain Intensity: 0 Pain Characteristics: Burning Associated Signs and Symptoms: Positive: Diarrhea, Other: - Weight loss Aggravating Factor(s): Nothing Alleviating Factor(s): Nothing - Allergy/Home Medications Allergies/Adverse Reactions: Allergies Allergy/AdvReac Type Severity Reaction Status Date / Time amlodipine Allergy leg pain Verified 04/25/19 10:42 bupropion [From [employer]] Allergy depression Verified 04/25/19 10:42 cilostazol Allergy Unknown Verified 04/25/19 10:42 Reaction Details Home Medications: Home Medications Lisinopril/HCTZ 11/20.5(NF) [Zestoretic 11/20.5(NF)] 1 tab PO DAILY 03/30/14 [ History Confirmed 04/25/19] Atorvastatin* [Lipitor*] 40 mg PO DAILY 11/20/16 [History Confirmed 04/25/19] HYDROcodone/ACETAMIN 5-325 MG* [[place] 5-325 TAB*] 1 tab PO Q4H PRN MDD 8 [History Confirmed 04/25/19] Calcium Carbonate CHEW TAB* [Tums*] 500 mg PO BID 04/25/19 [History Confirmed ] Cholecalciferol TAB* [Vitamin D TAB*] 1,000 unit PO DAILY 04/25/19 [History Confirmed 04/25/19] Cilostazol TAB* [Pletal TAB*] 100 mg PO BID 04/25/19 [History Confirmed 04/25/19 ] Cyanocobalamin TAB* [Vitamin B12 TAB*] 500 mcg PO DAILY 04/25/19 [History Confirmed 04/25/19] Garlic [Garlic Oil] 1,000 mg PO DAILY 04/25/19 [History Confirmed 04/25/19] Sucralfate TAB* [Carafate*] 1 gm PO QID #40 tab 04/25/19 [Rx] PMH/Surg Hx/FS Hx/Imm Hx Endocrine/Hematology History: Denies: Hx Diabetes, Hx Systemic Lupus Erythematosus Cardiovascular History: Reports: Hx Hypercholesterolemia, Hx Hypertension - ON DAILY MEDS, Hx Peripheral Vascular Disease - josé miguel legs Denies: Hx Congestive Heart Failure, Hx Pacemaker/ICD, Other Cardiovascular Problems/Disorders Respiratory History: Denies: Other Respiratory Problems/Disorders GI History: Reports: Hx Gastroesophageal Reflux Disease Denies: Other GI Disorders History: Reports: Other Problems/Disorders - bph Denies: Hx Dialysis, Hx Renal Disease Musculoskeletal History: Reports: Hx Arthritis - BACK, HIPS, Hx Back Problems Denies: Hx Rheumatoid Arthritis, Other Musculoskeletal History Sensory History: Reports: Hx Contacts or Glasses - GLASSES Denies: Hx Hearing Aid Opthamlomology History: Reports: Hx Contacts or Glasses - GLASSES Neurological History: Reports: Other Neuro Impairments/Disorders - PAIN CLINIC PT Psychiatric History: Reports: Hx Anxiety Denies: Hx Panic Disorder - Cancer History Cancer Type, Location and Year: basal cell Hx Chemotherapy: No - Surgical History Surgery Procedure, Year, and Place: 2013 Basal cell removal on scalp IN DR OFFICE. 1982, 1983, 1984. [place] [facility] [place] [facility] [place] [facility] 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, [facility] Hx Anesthesia Reactions: No Infectious Disease History: No Infectious Disease History: Denies: Traveled Outside the [place] in Last 30 Days - Family History Known Family History: Positive: Cardiac Disease - [place]-father - Social History Alcohol Use: Weekly Alcohol Amount: 2-4 beers per day Substance Use Type: Reports: None Smoking Status (MU): Former Smoker Type: Cigarettes Amount Used/How Often: 1 ppd 45 YRS Have You Smoked in the Last Year: Yes Review of Systems Positive: Other - Weight loss Positive: Abdominal Pain, Diarrhea Positive: Other - Back pain All Other Systems Reviewed And Are Negative: Yes Physical Exam - Summary Physical Exam Summary: Appearance: The patient is well-nourished in no acute distress and in no acute pain. Skin: The skin is warm and dry, and skin color reflects adequate perfusion. HEENT: The head is normocephalic and atraumatic. The pupils are equal and reactive. The conjunctivae are clear and without drainage. Nares are patent and without drainage. Mouth reveals moist mucous membranes, and the throat is without erythema and exudate. The external ears are intact. The ear canals are patent and without drainage. The tympanic membranes are intact. Neck: The neck is supple with full range of motion and non-tender. There are no carotid bruits. There is no neck vein distension. Respiratory: Chest is non-tender. Lungs are clear to auscultation and breath sounds are symmetrical and equal. Cardiovascular: Heart is regular rate and rhythm. There is no murmur or rub auscultated. There is no peripheral edema and pulses are symmetrical and equal. Abdomen: The abdomen is soft and non-tender. There are normal bowel sounds heard in all four quadrants and there is no organomegaly palpated. There is a small umbilical hernia that reduced easily, he is mildly tender in that vicinity. Musculoskeletal: There is no back tenderness noted. Extremities are non-tender with full range of motion. There is good capillary refill. There is no peripheral edema or calf tenderness elicited. Neurological: Patient is alert and oriented to person, place and time. The patient has symmetrical motor strength in all four extremities. Cranial nerves are grossly intact. Deep tendon reflexes are symmetrical and equal in all four extremities. Psychiatric: The patient has an appropriate affect and does not exhibit any anxiety or depression. Triage Information Reviewed: Yes Vital Signs On Initial Exam: Initial Vitals Temp Pulse Resp BP Pulse Ox 99.7 F 120 18 165/97 98 04/25/19 10:42 04/25/19 10:42 04/25/19 10:42 04/25/19 10:42 04/25/19 10:42 Vital Signs Reviewed: Yes Procedures - Sedation Patient Received Moderate/Deep Sedation with Procedure: No Diagnostics - Vital Signs Vital Signs Temp Pulse Resp BP Pulse Ox 04/25/19 10:42 99.7 F 120 18 165/97 98 - Laboratory Result Diagrams: 04/25/19 11:08 04/25/19 11:08 Lab Statement: Any lab studies that have been ordered have been reviewed, and results considered in the medical decision making process. - CT Abdomen/Pelvis CT CT Interpretation Completed By: Radiologist Summary of CT Findings: DIVERTICULOSIS. ATHEROSCLEROSIS. ED physician has reviewed this report. GIGU Course/Dx - Course Course Of Treatment: Mr. Rawls has had periumbilical pain for at least a month. He has not tried any medications or seen his physician at this time. He did see the KELVIN in the office who felt that the periumbilical hernia that he has was not the cause of the pain. His workup was generally unremarkable here and had only mild tenderness. I will try treating him for epigastric pain with sucralfate as he is a contraindication to PPIs. I recommended follow-up with his PCP this week. - Diagnoses Provider Diagnoses: Abdominal pain Discharge ED - Sign-Out/Discharge Documenting (check all that apply): Patient Departure - Discharge Plan Condition: Stable Disposition: HOME Prescriptions: Sucralfate TAB* [Carafate*] 1 gm PO QID #40 tab Patient Education Materials: Abdominal Pain (ED) Referrals: Carrillo Luna MD [Primary Care Provider] - 3 Days Additional Instructions: Follow-up with your PCP in 2-3 days. Return to the emergency department for changing or worsening symptoms. - Billing Disposition and Condition Condition: STABLE Disposition: Home - Attestation Statements Document Initiated by David: Yes Documenting Scribe: Idalmis Gamino Provider For Whom David is Documenting (Include Credential): Garry Izquierdo MD Scribe Attestation: I, lisa Godfreyed for Garry Izquierdo MD on 04/25/19 at 2052. Scribe Documentation Reviewed: Yes Provider Attestation: The documentation as recorded by the Idalmis barbosa accurately reflects the service I personally performed and the decisions made by me, Garry Izquierdo MD Status of Scribe Document: Viewed
--- OUTSIDE RECORDS SUMMARY | 2019-04-25 11:05 | XMS REPORT | Summary of Care ---
:1955 Author Organization [facility] Address [address] [place] [address] Care Team Providers Name Role Phone Carrillo Luna MD Primary Care Provider Reason for Visit Reason Comments Follow-up Encounter Details Date Type Department Care Team Description 03/11/2019 Office Visit [facility] Joan Byers S/P peripheral artery angioplasty (Primary Dx); [facility], RUMPER PAD (peripheral artery disease) Department of Surgery, [address] [place] [address] Division of Vascular [address] [place] [address] Endovascular Services [phone] [place] [address] Allergies Active Allergy Reactions Severity Noted Date Comments Bupropion 04/14/2018 documented as of this encounter (statuses as of 03/11/2019) Medications Medication Sig Dispensed Refills Start Date End Date Status atorvastatin Take 10 mg by 0 Active (LIPITOR) 40 MG mouth every tablet evening diazePAM (VALIUM) 5 Take by mouth 0 Active MG tablet every 8 (eight) hours as needed aspirin 81 MG tablet Take 81 mg by 0 Active mouth daily cilostazol (PLETAL) Take 100 mg by 2 08/21/2018 Active 100 MG tablet mouth Two Times Daily sildenafil (VIAGRA) TAKE ONE TABLET BY 11 11/08/2018 Active 100 MG tablet MOUTH 30 60 MINUTES BEFORE INTERCOURSE HYDROcodone-acetamin TAKE 1 TO 2 0 11/10/2018 Active ophen (NORCO) TABLETS BY MOUTH 7.5-325 MG per EVERY 6 HOURS tablet NEEDED FOR PAIN . DO NOT EXCEED 8 PER 24 HOURS clopidogrel (PLAVIX) Take 1 tablet by 30 tablet 11 12/06/2018 12/05/2019 Active 75 MG tablet mouth daily Lisinopril-hydroCHLO Take 1 tablet by 0 12/30/2018 Active ROthiazide 10-12.5 mouth daily MG Oral Tablet (PRINZIDE,ZESTORETIC ) Garlic 1000 MG Oral Take by mouth 0 Active Capsule documented as of this encounter (statuses as of 03/11/2019) Active Problems Problem Noted Date PVD (peripheral vascular disease) 12/06/2018 HTN (hypertension) 10/19/2018 HLD (hyperlipidemia) 10/19/2018 Anxiety 10/19/2018 Claudication of both lower extremities 10/18/2018 Peripheral arterial disease 10/18/2018 documented as of this encounter (statuses as of 03/11/2019) Social History Tobacco Use Types Packs/Day Years Used Date Former Smoker Cigarettes 1.5 40 Smokeless Tobacco: Never Used Alcohol Use Drinks/Week oz/Week Comments Yes 6 Cans of beer 6.0 Sex Assigned at Date Recorded Not on file Job Start Date Occupation Industry Not on file Not on file Not on file Travel History Travel Start Travel End No recent travel history available. documented as of this encounter Last Filed Vital Signs Vital Sign Reading Time Taken Comments Blood Pressure 136/92 03/11/2019 2:42 PM EST Pulse 112 03/11/2019 2:42 PM EST Temperature 36.5 03/11/2019 2:42 PM EST C (97.7 F) Respiratory Rate 20 03/11/2019 2:42 PM EST Oxygen Saturation 99% 03/11/2019 2:42 PM EST Inhaled Oxygen Concentration - - Weight 83.5 kg (184 lb) 03/11/2019 2:42 PM EST Height 167.6 cm (5' 6") 03/11/2019 2:42 PM EST Body Mass Index 29.7 03/11/2019 2:42 PM EST documented in this encounter Progress Notes Joan Beyrs NP - 03/11/2019 2:30 PM EST Reason for Visit: 2 month follow up HPI: Emeka Rawls is a 64 y.o.male presents for reevaluation of his known PAD. He is s/p left SFA, revascularization, arterectomy and angioplasty on 11/21/16 and right SFA angioplasty on 02/27/[address] Kauffman at [facility]. He continued to have intermittent claudication bilaterally. On 10/18/18 he underwent a RLE angio with a balloon angioplasty of the right mid SFA and AK popliteal and stenting of the proximalright BILLIE by Dr. Houston. On 12/06/18 he had a LLE angio with angioplasty of the left SFA and poplitealartery. He had PHILLIP/TBI's prior to his visit today. He reports that he is doing well. He can walk about 1-2 miles with limited breaks in between. He does still experience some mild calf aching in the left leg. He feels he is managing well with the way things are after his procedure. He continues to take the Pletal. He denies any pain at rest in the bilateral lower extremities or new tissue loss. He is also taking ASA and Plavix for antiplatelet therapy. Past Medical History: Diagnosis Date Anxiety Chickenpox Claudication Difficulty walking Hyperlipidemia Hypertension Mumps Pain in both lower legs when walking PVD (peripheral vascular disease) Throat cancer Wears glasses Past Surgical History: Procedure Laterality Date ARTHROPLASTY HIP TOTAL REPLACEMENT FACIAL SCAR REVISION LEFT FOREARM ORIF WI REVASCULARIZATION ILIAC ARTERY ANGIOP 1ST VSL Bilateral 10/18/2018 Procedure: EXTREMITY ANGIO - LOWER - PELVIC bilateral lower extremity; possible RLE intervention; Surgeon: Karina Houston MD; Location: OR [facility]; Service: Vascular; Laterality: Bilateral; WI REVSC OPN/PRG FEM/POP W/ANGIOPLASTY UNI N/A 10/18/2018 Procedure: REVASCULARIZATION,ENDOVASCULAR,OPEN OR PERCUTANEOUS,FEMORAL/ POPLITEAL ARTERY W/TRANSLUMINAL ANGIOPLASTY; Surgeon: Karina Houston MD; Location: OR [facility]; Service: Vascular; Laterality: N/A; VASCULAR STENTING BILATERAL VOCAL CORD POLYP REMOVAL 2016 CANCEROUS LESION TREAT W LASER Medications: Home Medications Medication Sig aspirin 81 MG tablet Take 81 mg by mouth daily atorvastatin (LIPITOR) 40 MG tablet Take 10 mg by mouth every evening cilostazol (PLETAL) 100 MG tablet Take 100 mg by mouth Two Times Daily clopidogrel (PLAVIX) 75 MG tablet Take 1 tablet by mouth daily diazePAM (VALIUM) 5 MG tablet Take by mouth every 8 (eight) hours as needed Garlic 1000 MG Oral Capsule Take by mouth HYDROcodone-acetaminophen (NORCO) 7.5-325 MG per tablet TAKE 1 TO 2 TABLETS BY MOUTH EVERY 6 HOURS NEEDED FOR PAIN . DO NOT EXCEED 8 PER 24 HOURS Lisinopril-hydroCHLOROthiazide 10-12.5 MG Oral Tablet (PRINZIDE,ZESTORETIC) Take 1 tablet by mouth daily sildenafil (VIAGRA) 100 MG tablet TAKE ONE TABLET BY MOUTH 30 60 MINUTES BEFORE INTERCOURSE Allergies: Zyban [bupropion] Family History Problem Relation Age of Onset Heart disease Father Social History Tobacco History Smoking Status Former Smoker Smoking Frequency 1.5 packs/day for 40 years (60 pk yrs) Smoking Tobacco Type Cigarettes Smokeless Tobacco Use Never Used Alcohol History Alcohol Use Status Yes Drinks/Week 6 Cans of beer per week Amount 6.0 standard drinks of alcohol/wk Drug Use Drug Use Status Never Sexual Activity Sexually Active Not Asked Activities of Daily Living Not Asked ROS: Constitutional: Denies fever, chills, fatigue, and unexpected weight change HEENT: Denies visual difficulties, hearing is good Respiratory: Denies cough,shortness of breath, wheezing, chronic cough or sputum production, no hemoptysis Cardiovascular: Denies chest pain or pressure, palpitations, or leg swelling Gastrointestinal: Denies nausea, vomiting, abdominal pain, diarrhea, constipation or blood in the stool Genitourinary: Denies dysuria, urgency, frequency, hematuria, and difficulty urinating Skin: Denies rashes or lesions Extremities/Musculoskeletal: Denies muscle weakness, numbness, or back pain Neurological: Denies dizziness, seizures, difficulty with speech, weakness, or numbness. Negative for TIA or CVA Hematological: Denies bruising easily or anemia Vitals: Vitals: 03/11/19 1442 BP: (!) 136/92 Pulse: (!) 112 Resp: (!) 20 Temp: 36.5 C (97.7 F) SpO2: 99% Physical Exam: General appearance: Alert, appears stated age, cooperative and no distress, ambulated independently into the exam room. Head: Normocephalic, without obvious abnormality, atraumatic Eyes: Negative findings: conjunctivae and sclerae normal Lungs: Respirations unlabored on room air. Cardiac: Normal rate and rhythm. Extremities: No edema noted of the BLE. Bilateral feet are warm with no cyanosis or rubor. No tissueloss. Motor and sensory function intact. Pulses: Audible DP, PT, AT bilaterally with doppler. Skin: Skin color, texture, turgor normal. No rashes. Neuro: Alert and oriented x3. Speech clear and appropriate. . Mood and Affect: Pleasant and appropriate Imaging and other Diagnostics: 02/04/19 PHILLIP's done at [facility] showed: Right: Posterior Tibial 0.86 Dorsalis Pedis 0.87 (previously 0.54 on September 2018) Left: Posterior Tibial 0.65 Dorsalis Pedis 0.72 (previously 0.74 on September 2018) Impression: Borderline claudication values in the RLE but improved from previous study Assessment: 1. PAD (peripheral artery disease) Plan: Emeka Rawls presents for reevaluation of his PAD. He reports that he is doing well. He feels he is walking much better. He does complain of some mild aching in the left calf but he says its greatlyimproved from previous. He states its manageable. He denies any rest pain or new tissue loss. He had ABIs done prior to his visit. His PHILLIP on the right is 0.87 and on the left is 0.72. The rightside is improved and the left PHILLIP is stable. Given that he is still experiencing some mild aching inthe left calf he would like to continue the Pletal. We will follow up with Emeka in 3 months with PHILLIP/TBI's. LIZABETH Colon Date: 03/11/2019 Time: 3:09 PM 3: 14 PM ESTdocumented in this encounter Plan of Treatment Health Maintenance Due Date Last Done Comments Hepatitis C Screening (B. 1955 [id number]) MMR Vaccines (1 of 1 - Standard 02/22/1956 series) Varicella Vaccines (1 of 2 - 02/22/1956 2-dose childhood series) DTaP,Tdap,and Td Vaccines (1 - 02/22/1963 Tdap) HIV Screening 02/22/1969 Colon Cancer Screening 10 yrs 02/22/2006 Zoster Vaccines (1 of 2) 02/22/2006 Influenza Vaccine 11/09/2018 Pneumococcal Vaccine: 65+ Years (1 02/22/2021 of 2 - PCV13) HIB Vaccines Aged Out No longer eligible based on patient's age to complete this topic Hepatitis A Vaccines Aged Out No longer eligible based on patient's age to complete this topic Hepatitis B Vaccines Aged Out No longer eligible based on patient's age to complete this topic IPV Vaccines Aged Out No longer eligible based on patient's age to complete this topic Pneumococcal Vaccine: Pediatrics Aged Out No longer eligible based on (0 to 5 Years) and At-Risk patient's age to complete this Patients (6 to 64 Years) topic documented as of this encounter Implants Implanted Type [facility] Device Shelf Model / Identifier Expiration Serial / Date Lot Stent- Omnilink 7mm X 39 [id number] - [id number] Right: [facility] 05/09/2021 [id number] / Implanted: Qty: 1 on 10/18/2018 by Karina Houston MD at OR [facility] [employer] [id number] / [id number] [id number] Angioseal Vip Platform - [id number] Right: [employer] 2019 [id number] / Implanted: Qty: 1 on 12/06/2018 by Karina Houtson MD at OR [facility] [employer] [id number] / [id number] documented as of this encounter Results Not on filedocumented in this encounter Visit Diagnoses Diagnosis S/P peripheral artery angioplasty - Primary Other postprocedural status PAD (peripheral artery disease) Peripheral vascular disease, unspecified documented in this encounter
--- OUTSIDE RECORDS SUMMARY | 2019-04-25 11:05 | XMS REPORT | Continuity of Care Document ---
:1955 External Reference #:[id number] Author Name Nazia Barnes Address [address] [place] [address] Care Team Providers Name Role Phone Mau Garay MD - Otolaryngology Care Team Information Urgent Care Nurse Practitioner Marco Engel ([place] [facility]) Care Team Information Urgent Care Nurse Practitioner - Otolaryngology Problems Active Problems Provider Date Benign essential hypertension Carrillo Luna M.D. Onset: 09/25/2009 Hyperlipidemia Carrillo Luna M.D. Onset: 09/25/2009 Benign prostatic hypertrophy without outflow Carrillo Luna M.D. Onset: obstruction Tobacco user Carrillo Luna M.D. Onset: 03/24/2011 Low back pain Carrillo Luna M.D. Onset: 08/15/2013 Neuralgia Carrillo Luna M.D. Onset: 08/15/2013 Sciatica Carrillo Luna M.D. Onset: 08/15/2013 Arthralgia of the pelvic region and thigh Carrillo Luna M.D. Onset: 2014 Essential hypertension Carrillo Luna M.D. Onset: 02/20/2015 Difficulty speaking Carrillo Luna M.D. Onset: 08/07/2015 Malignant tumor of larynx Carrillo Luna M.D. Onset: 02/08/2016 Nicotine dependence, cigarettes, with other Carrillo Luna M.D. Onset: 02/07 nicotine-induced disorders Peripheral vascular disease Carrillo Luna M.D. Onset: 08/11/2016 Diarrhea Carrillo Luna M.D. Onset: 03/13/2017 Psychogenic impotence Carrillo Luna M.D. Onset: 06/26/2017 Mixed hyperlipidemia Carrillo Luna M.D. Onset: 12/01/2017 Generalized anxiety disorder Carrillo Luna M.D. Onset: 10/05/2018 Social History Type Date Description Comments Sex Unknown Tobacco Use Start: Unknown End: Unknown Former Cigarette Smoker Smoking Status Reviewed: 04/04/19 Former Cigarette Smoker ETOH Use Consumes 3 beers per day Tobacco Use Start: Unknown End: Unknown Patient is a former smoker Allergies, Adverse Reactions, Alerts Active Allergies Reaction Severity Comments Date Zyban caused depression 02/08/2016 Medications Active Medications SIG Qnty Indications Ordering Provider Date Hydrocodone-Acetami 1-2 by mouth every 240tabs M54.5 Carrillo Luna, 06/28 nophen 6 hours as needed M.D. 7.5-325mg for pain Tablets Atorvastatin take one tablet by 90tabs Carrillo Luna, 08/11/2016 Calcium mouth at bedtime M.D. 40mg for cholesterol Tablets Diazepam 1 three times a 90tabs Carrillo Luna, 08/27/2015 5mg day as needed M.D. Tablets anxiety Lisinopril-Hydrochl take one tablet by 90tabs Carrillo Luna, 02/20/2014 orothiazide mouth every day M.D. 10-12.5mg Tablets Viagra 1 tab as needed 14tabs Carrillo Luna, 05/04/2012 100mg 30-60 min before M.D. Tablets intercourse Aspirin 1 po qd Family Medicine 09/25/2009 81mg [facility] [place] Cilostazol take one tablet by 180tabs Carrillo Luna, 100mg mouth twice a day M.D. Tablets History Medications Citalopram 1-2 by mouth 60tabs F41.1 Carrillo Luna, 10/05/2018 - Hydrobromide every day In M.D. 11/26/2018 10mg Morning For Tablets Anxiety Immunizations CPT Code Status Date Vaccine Lot # [id number] Given 09/23/2013 Tdap Tetanus, W Pertussis [id number] Vital Signs Date Vital Result Comment 04/04/2019 3:26pm BP Systolic 128 mmHg BP Diastolic 70 mmHg Heart Rate 68 /min Body Temperature 98.1 F Respiratory Rate 18 /min Weight 192.00 lb 11/26/2018 10:31am BP Systolic 130 mmHg BP Diastolic 68 mmHg Heart Rate 80 /min Body Temperature 97.5 F Respiratory Rate 20 /min Height 65 inches 5'5" Weight 189.00 lb BMI (Body Mass Index) 31.4 kg/m2 Results Description No Information Available Procedures Date Code Description Status 12/12/2011 [id number] Colonoscopy Completed Medical Devices Description No Information Available Encounters Type Date Location Provider Dx Diagnosis Office Visit 11/26/2018 Main Office Carrillo Luna, F41.1 Generalized anxiety 11:00a M.D. disorder I10 Essential (primary) hypertension I73.89 Other specified peripheral vascular diseases E78.2 Mixed hyperlipidemia M54.5 Low back pain Office Visit 10/05/2018 11:20a Main Office Carrillo Luna I10 Essential ( primary) M.D. hypertension I73.89 Other specified peripheral vascular diseases E78.2 Mixed hyperlipidemia M54.5 Low back pain F41.1 Generalized anxiety disorder Assessments Date Code Description Provider 04/04/2019 K42.9 Umbilical hernia without obstruction or Linda Hilsdorf, Afnp-C gangrene 11/26/2018 F41.1 Generalized anxiety disorder Carrillo Luna M.D. 11/26/2018 I10 Essential (primary) hypertension Carrillo Luna M.D. 11/26/2018 I73.89 Other specified peripheral vascular Carrillo Luna M.D. diseases 11/26/2018 E78.2 Mixed hyperlipidemia Carrillo Luna M.D. 11/26/2018 M54.5 Low back pain Carrillo Luna M.D. 10/05/2018 I10 Essential (primary) hypertension Carrillo Luna M.D. 10/05/2018 I73.89 Other specified peripheral vascular Carrillo Luna M.D. diseases 10/05/2018 E78.2 Mixed hyperlipidemia Carrillo Luna M.D. 10/05/2018 M54.5 Low back pain Carrillo Luna M.D. 10/05/2018 F41.1 Generalized anxiety disorder Carrillo Luna M.D. Plan of Treatment Future Appointment(s):05/17/2019 8:20 am - Carrillo Luna M.D. at [facility]/04/2019 - Linda Faith, Evaristo-CK42.9 Umbilical hernia without obstruction or gangreneAllComments:Medication Management Patient Understands medications he's taking? Yes No Are there Barriersto Adherence? Yes No Has the patient been asked about herbal supplements and therapies, and OTC meds? Yes No Care Plan1. Patient has been queried about patient's goals/preferences and functional/lifestyle goals at relevant visits. If relevant, describe: na2. Treatment goals asexplained to the patient: aboveobservation 3. Are there barriers to meeting treatment goals? Yes No If Yes, please describe:4. Self-Management goals as described to the patient : Yes No this is a very small hernia and only treatment needed is observation , for any increase in size or pain continue recomeneded healthy diet and regular physical activity f/u with your pcp as scheduled Functional Status Description No Information Available Mental Status Description No Information Available Referrals Description No Information Available
[2019-04-25 11:22] LABS: ABS Lymphocytes 1.1 10^3/ul (1.0-4.8); ABS Monocytes 0.5 10^3/ul (0-0.8); ABS Neutrophils 4.3 10^3/ul (1.5-7.7); Eosinophil % 0.3 %; Hematocrit 42 % (42-52); Hemoglobin 14.6 g/dL (14.0-18.0); Lymphocyte % 19.2 %; Mean Corpuscular HGB Conc 35 g/dL (31-36); Mean Corpuscular Hemoglobin 32 pg (27-31); Mean Corpuscular Volume 92 fL (80-94); Mean Platelet Volume 8.9 fL (7.4-10.4); Nucleated Red Blood Cells % 0.1; Platelet Count 235 10^3/uL (150-450); Red Blood Count 4.54 10^6 /uL (4.18-5.48); Red Cell Distribution Width 13 % (10-15)
[2019-04-25 11:47] LABS: ALT 28 U/L (7-52); AST 23 U/L (13-39); Albumin 4.9 g/dL (3.2-5.2); Albumin/Globulin Ratio 2.1 (1-3); Alkaline Phosphatase 64 U/L (34-104); Anion Gap 8 mmol/L (2-11); BUN/Creatinine Ratio 12.1 (8-20); Blood Urea Nitrogen 13 mg/dL (6-24); C Reactive Protein < 1.00 mg/L (<8.01); CO2 Carbon Dioxide 24 mmol/L (22-32); Calcium 10.4 mg/dL (8.6-10.3); Chloride 101 mmol/L (101-111); EGFR African American 84.5 (>60); EGFR Non-African American 69.8 (>60); Globulin 2.3 g/dL (2-4); Glucose 131 mg/dL (70-100); Potassium 3.9 mmol/L (3.5-5.0); Sodium 133 mmol/L (135-145); Total Protein 7.2 g/dL (6.4-8.9)
[2019-04-25 13:08] VITALS: BP 125/92
== END 2019-04-25 13:07 | disposition home or self-care (01) ==
LOC: ED 10:41
DX: R10.9 Unspecified abdominal pain (principal); R19.7 Diarrhea, unspecified; E78.00 Pure hypercholesterolemia, unspecified; K21.9 Gastro-esophageal reflux disease without esophagitis; I10 Essential (primary) hypertension; F41.9 Anxiety disorder, unspecified; M54.9 Dorsalgia, unspecified; I73.9 Peripheral vascular disease, unspecified; Z85.828 Personal history of other malignant neoplasm of skin; Z79.899 Other long term (current) drug therapy; Z96.642 Presence of left artificial hip joint; Z85.818 Personal history of malignant neoplasm of other sites of lip, oral cavity, and pharynx; Z87.891 Personal history of nicotine dependence
CPT/HCPCS: 36415; 74176; 80053; 83605; 85025; 86140; 99282